=== PATIENT | female | born 1965 | race Caucasian/White ===

== ENCOUNTER → 2018-06-02 11:18 | Outpatient (CLI) | payer OTHER, MEDICAID, SELFPAY ==
[2018-06-02 11:53] LABS: Absolute Lymphocyte Count 1.97 X10^3/ul (0.83-4.51); Absolute Neutrophil Count 3.1 X10^3/uL (2.0-7.7); Basophil# 0.03 X10^3/uL; Basophil% 0.5 % (0-1); Eosinophils% 1.7 % (0-5); Hematocrit 41.3 % (37-47); Hemoglobin 13.7 g/dl (12.0-15.0); Lymphocyte # 1.97 X10^3/ul (4.0); Lymphocyte % 33.3 % (19-41); Mean Corp Hgb Conc 33.2 g/gl (32-36); Mean Corpuscular Volume 87.5 fL (81-99); Mean Platelet Vol. 10.9 fl (6.2-12.0); Monocyte# 0.68 X10^3/uL; Monocyte% 11.5 % (0-10); Neutrophil # 3.13 X10^3/uL (2.7-7.7); Neutrophil % 52.8 % (47-70); Platelet Count 264 K/mm3 (150-450); RBC Distribution Width CV 13.1 % (11.6-14.6); RBC Distribution Width SD 41.2 fl (35.1-43.9); Red Blood Count 4.72 M/mm3 (4.2-5.4); White Blood Count 5.9 K/mm3 (4.4-11.0)
[2018-06-02 11:55] LABS: POSITIVE COUNT NO; POSITIVE DIFFERENTIAL NO; POSITIVE MORPHOLOGY NO
[2018-06-02 12:03] LABS: Erythrocyte Sedimentation Rate 13 mm/hr (0-30)
== END ==
PROVIDERS: Visit Provider Specialist
DX: Z96.651 Presence of right artificial knee joint (principal)
CPT/HCPCS: 36415; 85025; 85652; 86140

== ENCOUNTER → 2018-06-28 14:12 | Outpatient (CLI) | payer OTHER, MEDICAID, SELFPAY ==
[2018-06-28 20:28] LABS: Body Fluid QC Type(s) BF3Q
[2018-06-28 21:13] LABS: AUTO B FLUID DILUENT BKGD CT WBC <0.1 RBC <0.01 (W<.1,R<.01)
[2018-06-28 21:14] LABS: Appearance /Synovial Fluid Sl Cl (CLEAR); Color / Synovial Fluid Pink (Pale Yellow); RBC /Synovial Fluid 0.013 10^6/uL (0); Viscosity / Synovial Fluid Sl. Viscous (HIGH)
[2018-06-28 21:15] LABS: Synovial Fld Polynuclear WBC % 19.5 %
[2018-06-28 21:16] LABS: Lymph 14 %; Monocyte /Synovial Fluid 53 %; Neutrophil 4 % (0-25); Other Cell /Synovial Fluid 29 %; Synovial Fld Mononuclear WBC # 1.257 10^3/ul; Synovial Fld Mononuclear WBC % 80.5 %; Synovial Fld Polynuclear WBC # 0.304 10^3/ul
[2018-06-28 21:17] LABS: Source / Synovial Fluid RIGHT KNEE
[2018-07-02 10:02] LABS: Pathologist Comment Reviewed
== END ==
PROVIDERS: Visit Provider Specialist
DX: M25.461 Effusion, right knee (principal); Z96.651 Presence of right artificial knee joint
CPT/HCPCS: 87015; 87070; 87075; 87101; 87116; 87205; 87206; 89050; 89051

== ENCOUNTER → 2018-12-21 07:02 | Outpatient (CLI) | payer OTHER, SELFPAY ==
[2018-12-07 12:59] VITALS: BMI 43.4
--- NOTE | 2018-12-21 07:04 | ECHOCS_ITS ---
Reason For Study: AFIB Procedure This was a 2D Doppler, Color Flow transthoracic echocardiogram. Contrast injection was performed. Exam performed in department. Left Ventricle Normal LV size. Left ventricular systolic function is normal. The estimated ejection fraction is 65 %. Stage 1 diastolic dysfunction. No regional wall motion abnormalities noted. Right Ventricle Normal RV size. Normal systolic function. Atria Normal left atrium. Normal right atrium. Mitral Valve Normal mitral valve. Tricuspid Valve Normal tricuspid valve. Aortic Valve Normal aortic valve. Pulmonic Valve Normal pulmonic valve. Great Vessels Normal aortic root. The pulmonary artery is normal size. Normal inferior vena cava. Pericardium/Pleural No pericardial effusion. Medication Diluted definity 3.5ml given slow IV push to enhance endocardial definition. MMode/2D Measurements & Calculations LVIDd: 4.5 cm IVSd: 0.92 cm Ao root diam: 3.2 cm LVIDs: 2.9 cm LVPWd: 1.0 cm RVDd: 3.7 cm FS: 35.2 % LAV(MOD-bp): 52.4 ml EDV(MOD-sp4): 86.0 ml SV(MOD-sp4): 61.9 ml LAV(MOD-bp) Indexed: 22.6 ml/m2 ESV(MOD-sp4): 24.1 ml LAV(MOD-sp2): 55.0 ml EF(MOD-sp4): 71.9 % LAV(MOD-sp4): 47.3 ml LA dimension(2D): 4.0 cm LA A4 area: 17.4 cm2 RA A4 area: 16.2 cm2 Time Measurements MV dec time: 0.23 sec Doppler Measurements & Calculations MV E max edwin: 125.6 cm/sec Lat Peak E' Edwin: 13.4 cm/sec Med Peak E' Edwin: 7.7 cm/sec MV A max edwin: 91.7 cm/sec E/E' lat: 9.4 E/E' med: 16.2 MV E/A: 1.4 Ao V2 max: 147.2 cm/sec LV V1 max: 120.1 cm/sec TR max edwin: 135.9 cm/sec Ao max P.7 mmHg LV V1 max P.8 mmHg TR max P.4 mmHg Interpretation Summary Normal LV size. Left ventricular systolic function is normal. The estimated ejection fraction is 65 %. Stage 1 diastolic dysfunction. Contrast injection was performed. Ordering Physician: Prem Flynn Referring Physician: Prem Flynn Performed By: Rosalie DORADO, Colleen RAMSEY and Student
--- NOTE | 2018-12-21 09:29 | STRESSREP_ITS ---
Stress Test Report Pharmacologic myocardial perfusion stress test. 53-year-old lady with a history of chest pain. Stress protocol: Resting EKG demonstrates sinus bradycardia with a rate of 53 bpm normal intervals are noted resting blood pressure 124/88 mmHg. 0.4 mg of regadenoson was infused per usual protocol followed by rapid intravenous saline flush i njection continuous EKG monitoring was performed. The maximum heart rate attained was 92 bpm which was 55% of maximum predicted heart rate the maximum workload was 1 metabolic equivalent. At rest there were no ST or T wave changes noted suggest abnormal flow reserve at peak infusion nonspecific ST-T wave changes were noted. The resting blood pressure 124/88 peak blood pressure 130/88. Myocardial perfusion protocol. 13.2 mCi of technetium 99m sestamibi was injected at rest. 0.4 mg of regadenoson was infused per usual protocol peak infusion 45.0 mCi of technetium 99m sestamibi was injected stress images were obtained stress and rest images were reconstructed and compared in the short axis vertical long horizontal long axis. Gated images were also obtained per Perfusion SPECT analysis: Review of the stress images demonstrate normal uptake of tracer noted in all areas of myocardium. The resting images similarly demonstrate normal uptake of tracer noted in all areas of the myocardium. No areas of reversibility are noted suggest ischemia. Gated SPECT analysis: The gated ejection fraction is noted to be 81%. Conclusion: Normal pharmacologic myocardial perfusion stress test. Preserved ejection fraction.
== END ==
PROVIDERS: Referring Provider Internal Medicine Cardiovascular Disease; Visit Provider Internal Medicine Cardiovascular Disease
DX: R07.9 Chest pain, unspecified (principal); I48.0 Paroxysmal atrial fibrillation
CPT/HCPCS: 78452; 93017; 93306; A9500; Q9957; A4216; C8929; J2785

== ENCOUNTER 2022-02-11 04:22 | Emergency (ER) | payer OTHER, SELFPAY ==
[2022-02-11 04:23] VITALS: BP 159/81; PULSE 60; RESP 18; TEMP 36.4; O2SAT 98; BMI 46.9
--- NOTE | 2022-02-11 04:36 | EKG12_ITS ---
Test Reason : ABD PAIN Blood Pressure : / mmHG Vent. Rate : 051 BPM Atrial Rate : 051 BPM P-R Int : 172 ms QRS Dur : 096 ms QT Int : 476 ms P-R-T Axes : 024 038 037 degrees QTc Int : 438 ms Sinus bradycardia Poor R- wave progression Confirmed by CHA DAVENPORT, JIN ([id number]), technical writer and editor HARSH GRACIA ([id number]) on 02/16/2022 11:09:45 AM Referred By: Confirmed By:JIN EUBANKS MD
--- NOTE | 2022-02-11 04:39 | EDS_ITS ---
HPI HPI - GI History of Present Illness Chief Complaint: Abd Pain Informant: patient Narrative Narrative: Patient presents with abdominal pain nausea vomiting diarrhea. She has been having some episodes of this every 1 to 2 weeks for about a month and 1/2 to 2 months. Her symptoms normally last 1 to 3 days. She has seen her private physician. Outpatient ultrasound was done that showed gallstones but no signs of acute cholecystitis. HIDA scan has not been done. Patient has not seen surgeon. This episode started about 18 to 24 hours ago. Nothing specifically initiates that such as types of food. The pain is epigastric toward the right upper quadrant. Occasionally will go through to the back. She has no urinary symptoms. No chest pain or trouble breathing. Patient does have a history of paroxysmal A. fib and takes flecainide. She takes just as needed Lasix and is not taking it now. She is taking her pantoprazole. Patient has not seen blood in the vomitus and stool. One time many weeks ago she saw a little bit of red blood after she moved her bowels but that was a single episode. No melena. [facility] Medical History Asthma Arzate esophagus Bilateral leg edema Obesity Obstructive sleep apnea Paroxysmal atrial fibrillation Home Medications aspirin 81 mg tablet,delayed release 81 mg PO QDAY 11/23/17 [History Last Taken Unknown] furosemide 40 mg tablet 40 mg PO DAILY PRN tab 09/08/21 [History Last Taken Unknown] pantoprazole 40 mg tablet,delayed release 40 mg PO DAILY 09/08/21 [History Last Taken Unknown] flecainide 100 mg tablet 100 mg PO Q12H #180 tab 12/16/21 [Rx Last Taken Unknown] metoprolol succinate 50 mg tablet,extended release 24 hr 50 mg PO DAILY #90 tab 12/16/21 [Rx Last Taken Unknown] fluticasone propion-salmeterol [Advair Diskus] 1 ea INHALATION BID 02/11/22 [History Last Taken Unknown] ondansetron 4 mg PO Q8H PRN #10 tab 02/11/22 [Rx Last Taken Unknown] oxycodone-acetaminophen [Percocet] 1 tab PO Q6H PRN 3 Days #10 tab 02/11/22 [Rx Last Taken Unknown] Allergy/AdvReac Type Severity Reaction Status Date / Time No Known Allergies Allergy Verified 02/11/22 04:26 Family History Mother Diabetes Kidney disease Father Heart disease Lung disease Surgical History achilles tendon surgery History of total right knee replacement S/P foot surgery Social History Smoking Status: Never smoker alcohol intake: never substance use type: does not use what type of physical activity do you participate in: none ROS ROS ED Constitutional Constitutional ED: Denies fever(s) or subjective ENT ENT ED: Denies rhinorrhea or sore throat Cardiovascular Cardiovascular: Denies chest pain or palpitations Respiratory/Chest Respiratory/Chest: Denies cough or dyspnea Gastrointestinal Gastrointestinal: Reports abdominal pain, diarrhea, nausea and vomiting; Denies constipation or melena Genitourinary Genitourinary ED: Denies dysuria or hematuria Musculoskeletal Musculoskeletal: Denies myalgias Integumentary Denies rash Neurologic Neurologic: Denies paresthesias or weakness Endocrine Endocrinology: Denies polydipsia or polyuria Hematologic/Lymphatic Hematologic/Lymphatic: Denies easy bleeding or easy bruising Allergic/Immunologic Allergic/Immunologic ED: Denies urticaria EXAM Physical Exam Const Vital Signs: 02/11/22 04:23 Temperature 97.6 F L Temperature Source Oral Pulse Rate 60 Respiratory Rate 18 Blood Pressure 159/81 H Blood Pressure Mean 107 Pulse Ox 98 Oxygen Delivery Method Room Air Positive well nourished, well developed and obese General Appearance ED: well developed and NAD Nutritional Appearance: obese HEENT Reports moist mucous membranes Eyes General Eye ED: Negative for pale conjunctiva or scleral icterus Neck no JVD Resp normal respiratory effort and clear to auscultation bilaterally Effort and Inspection: Negative for pain with movement Auscultation: Negative for rales, rhonchi or wheezes Cardio regular rate, regular rhythm and no murmurs GI non-distended GI Narrative: Patient's abdomen is soft. There is some epigastric and right upper quadrant tenderness. Equivocal Mason sign. No tenderness in the lower abdomen. Bowel sounds are normal. Auscultation: normoactive bowel sounds Palpation: soft Back/Spine no CVA tenderness Extremity General Extremety ED: Negative for tenderness Neuro Sensorium / Orientation: alert Skin Lesions: no lesions Rashes: no rashes MDM MDM MDM Narrative Medical decision making narrative: I was able to pull the ultrasound report off of interconnected computer system. This was done on January 27 of this year. It did show a 1.2 cm shadowing gallstone but no wall thickening or pericholecystic fluid. Negative sonographic Mason sign. Patient's blood work shows normal white count. Minimally elevated hemoglobin. Electrolytes were normal other than mild bump of her creatinine. She was given some IV fluids here. Liver function test and lipase are all normal. Urine was clear yellow with negative nitrites. She has no urinary symptoms. Patient's recheck. Her pain is almost gone. She states she has a minimal ache. But no nausea. There is no tenderness now. I will get her a dose of Toradol because I think it is longer lasting and very effective for biliary issues. I think with her age, size, known gallstone, intermittent episodes of pain this likely is biliary colic as the source of her symptoms. She is already on pantoprazole. I will refer her to surgery. She may need outpatient work-up with further testing such as HIDA scan. If she has worsening pain, fevers, vomiting or other concerns she should return. Lab Data Attestation: I reviewed the patient's lab results. Labs: Laboratory Results - last 24 hr 02/11/22 02/11/22 02/11/22 04:26 04:26 04:55 WBC 4.8 RBC 5.33 Hgb 15.5 H Hct 47.6 H MCV 89.3 MCH 29.1 MCHC 32.6 RDW Std Deviation 43.3 RDW Coeff of Jez 13.2 Plt Count 302 MPV 10.8 Immature Gran % (Auto) 0.200 Neut % (Auto) 61.8 Lymph % (Auto) 24.4 Trigg % (Auto) 12.8 H Eos % (Auto) 0.4 Baso % (Auto) 0.4 Absolute Neuts (auto) 2.9 Absolute Lymphs (auto) 1.16 Nucleated RBC % 0 Sodium 138 Potassium 3.7 Chloride 106 Carbon Dioxide 28.0 Anion Gap 4 L BUN 9 Creatinine 1.03 H Estim Creat Clear Calc 59.31 Est GFR (MDRD) Af Amer 71 Est GFR (MDRD) Non-Af 59 L BUN/Creatinine Ratio 8.7 L Glucose 104 Calcium 8.6 Total Bilirubin 0.90 AST 18 ALT 25 Alkaline Phosphatase 89 Total Protein 7.7 Albumin 3.6 Globulin 4.1 Albumin/Globulin Ratio 0.9 Lipase 160 Urine Color Yellow Urine Clarity Clear Urine pH 6.0 Ur Specific Novice 1.025 Urine Protein 30 H Urine Glucose (UA) Normal Urine Ketones 5 H Urine Occult Blood 10 H Urine Nitrite Negative Urine Bilirubin 1 H Urine Urobilinogen 4 H Ur Leukocyte Esterase 25 H EKG Initial EKG: Comments: EKG none for upper abdominal pain in a 56-year-old female. EKG read by me shows sinus rhythm with slightly bradycardic rate at 51. No ventricular ectopy. No acute ST elevation or depression. ME interval, QRS duration and QTc are normal. Discharge Plan Triage Chief Complaint: Abd Pain ED Provider: Anthony Miramontes Dx/Rx/DC Orders Clinical Impression: Biliary colic, Abdominal pain, Nausea & vomiting Instructions: ED Gallstones with Biliary Colic Prescriptions: New oxycodone-acetaminophen [Percocet] 5-325 mg tablet 1 tab PO Q6H PRN (Reason: pain) 3 Days Qty: 10 RF: 0 ondansetron 4 mg tablet,disintegrating 4 mg PO Q8H PRN (Reason: nausea and vomiting) Qty: 10 RF: 0 No Action aspirin 81 mg tablet,delayed release (DR/EC) 81 mg PO QDAY RF: 0 pantoprazole 40 mg tablet,delayed release (DR/EC) 40 mg PO DAILY RF: 0 furosemide 40 mg tablet 40 mg PO DAILY PRN (Reason: Indigestion) RF: 0 fluticasone propion-salmeterol [Advair Diskus] 100-50 mcg/dose blister with device 1 ea INHALATION BID RF: 0 flecainide 100 mg tablet 100 mg PO Q12H Qty: 180 RF: 4 metoprolol succinate [Toprol XL] 50 mg tablet extended release 24 hr 50 mg PO DAILY Qty: 90 RF: 3 Primary Care Provider: Prema Hanna Referrals: Mattie Linton MD [STAFF PHYSICIAN] - As soon as possible [facility],Out of [NON-STAFF] - Disposition Disposition: Home, Self Care
[2022-02-11] MEDS: Ondansetron 4 MG/2 ML Vial IV (04:47)
[2022-02-11] MEDS: Morphine 4 MG/ML Syringe IV (04:48)
[2022-02-11 04:51] LABS: Absolute Lymphocyte Count 1.16 X10^3/uL (0.83-4.51); Absolute Neutrophil Count 2.9 X10^3/uL (2.0-7.7); Basophil# 0.02 X10^3/uL; Basophil% 0.4 % (0-1); Eosinophil# 0.02 X10^3/uL; Eosinophils% 0.4 % (0-5); Hematocrit 47.6 % (37-47); Hemoglobin 15.5 g/dL (12.0-15.0); Lymphocyte # 1.16 X10^3/ul (0.83-4.51); Lymphocyte % 24.4 % (19-41); Mean Corp Hgb Conc 32.6 g/dL (32-36); Mean Corpuscular Hgb 29.1 pg (27.0-32.0); Mean Corpuscular Volume 89.3 fL (81-99); Mean Platelet Vol. 10.8 fl (6.2-12.0); Monocyte# 0.61 X10^3/uL; Monocyte% 12.8 % (0-10); NRBC Flagged by Analyzer 0 % (0-5); Neutrophil # 2.93 X10^3/uL (2.7-7.7); Neutrophil % 61.8 % (47-70); Platelet Count 302 K/mm3 (150-450); RBC Distribution Width CV 13.2 % (11.6-14.6); RBC Distribution Width SD 43.3 fl (35.1-43.9); Red Blood Count 5.33 M/mm3 (4.2-5.4); White Blood Count 4.8 K/mm3 (4.4-11.0)
[2022-02-11 05:15] LABS: ALB/GLOB Ratio 0.9 RATIO (0.9-2.4); AST(SGOT) 18 U/L (15-37); Alanine Aminotransfer ALT/SGPT 25 U/L (13-56); Albumin, Serum 3.6 g/dL (3.2-5.0); Alkaline Phosphatase 89 U/L (45-117); Anion Gap 4 (5-15); BUN 9 mg/dL (7-18); BUN/Creat Ratio 8.7 RATIO (10-20); Calcium,Total 8.6 mg/dL (8.5-10.1); Chloride 106 mmol/L (98-107); Creatinine, Serum 1.03 mg/dL (0.55-1.02); EST Glomerular Filtration Rate 59 mL/min (>60); Est Glom Filt Rate - Afr Amer 71 mL/min (>60); Estimated Creatinine Clearance 59.31 ml/min; Globulin 4.1 g/dL (2.2-4.2); Glucose 104 mg/dL (74-106); Lipase 160 U/L (73-393); Potassium 3.7 mmol/L (3.5-5.1); Protein, Total 7.7 g/dL (6.4-8.2); Sodium Level 138 mmol/L (136-145)
[2022-02-11 05:23] LABS: Color, Urine Yellow (Yellow); Glucose, Dipstick Normal (Normal); Ketone-Dipstick 5 mg/dl (Negative); Leukocyte Esterase-Dipstick 25 /ul (Negative); Nitrite-Dipstick Negative (Negative); Occult Blood-Urine 10 /ul (Negative); Protein-Dipstick 30 mg/dl (Negative); Specific Gravity, Urine 1.025 (1.002-1.030); Urine Clarity Clear (Clear); Urine Urobilinogen 4 mg/dl (Normal)
[2022-02-11 05:34] LABS: Urine Bilirubin Dipstick 1 mg/dL (Negative)
[2022-02-11 05:45] LABS: Red Blood Cells-Urine 0-5 SEEN /hpf (0-5); White Blood Cells 0-5 SEEN /hpf (0-5)
[2022-02-11 05:46] LABS: Bacteria 1+ /hpf (None Seen); Mucous, Urine 2+ /hpf (<or=2+); Squamous Epithelial Cells - UA 0-5 SEEN /hpf (5-10)
[2022-02-11 05:57] VITALS: RESP 16
== END 2022-02-11 05:58 | disposition home or self-care (01) ==
PROVIDERS: Emergency Provider Emergency Medicine; PCP Internal Medicine; Visit Provider Emergency Medicine
DX: K80.50 Calculus of bile duct without cholangitis or cholecystitis without obstruction (principal); I48.0 Paroxysmal atrial fibrillation; R10.9 Unspecified abdominal pain; R11.2 Nausea with vomiting, unspecified; E66.9 Obesity, unspecified; G47.33 Obstructive sleep apnea (adult) (pediatric); Z79.82 Long term (current) use of aspirin; Z79.899 Other long term (current) drug therapy
CPT/HCPCS: 80053; 81001; 83605; 83690; 85025; 93005; 96361; 96374; 96375; 99283; J7030; A4216; J2405

== ENCOUNTER → 2022-09-28 | Outpatient (CLI) | payer OTHER, SELFPAY ==
--- NOTE | 2022-09-28 15:53 | STRESSREP ---
Stress Test Report Pharmacal myocardial perfusion stress test. 56-year-old lady with a history of atrial fibrillation on flecainide therapy. Resting EKG. Resting EKG demonstrates sinus rhythm with a rate of 58 bpm normal intervals are noted. Resting blood pressure is 118/74 mmHg. 0.4 mg of regadenoson was infused per usual protocol followed by rapid intravenous saline flush injection continuous EKG monitoring was performed. The maximum heart rate attained was 78 bpm which was 47% of max impacted heart rate the maximum workload was 1 metabolic equivalent. At rest there were no ST or T wave changes noted suggest ischemia and at peak infusion nonspecific ST changes were noted we did not meet the criteria for ischemia. No clinical angina was noted the test was terminated due to completion of the protocol Myocardial perfusion protocol. 14.1 mCi of technetium 99m sestamibi was injected at rest. 0.4 mg of regadenoson was infused per usual protocol. At peak infusion 37.0 mCi of technetium 99m sestamibi was injected stress images were obtained stress and rest images were reconstructed and compared in the short axis vertical long and horizontal long axis. Gated images were also obtained. Perfusion SPECT analysis: Review of the stress images demonstrate normal uptake of tracer noted in all areas of the myocardium. The resting images similar demonstrate normal uptake of tracer noted in all areas of the myocardium. No areas of reversibility are noted to suggest ischemia and no previous infarct is noted. Gated SPECT analysis: The gated ejection fraction is 78%. Conclusion: Normal pharmacologic myocardial perfusion stress test. Preserved ejection fraction.
== END | disposition home or self-care (01) ==
LOC: CVS 06:43
PROVIDERS: PCP Internal Medicine; Visit Provider Internal Medicine Cardiovascular Disease
DX: I48.0 Paroxysmal atrial fibrillation (principal)
CPT/HCPCS: 78452; 93017; A9500; A4216; J2785

== ENCOUNTER 2023-02-22 22:58 | Emergency (ER) | payer OTHER, SELFPAY ==
[2023-02-22 22:59] VITALS: BP 162/109; PULSE 102; RESP 18; TEMP 36.1; O2SAT 99; BMI 47.0
--- NOTE | 2023-02-22 23:09 | ED.VIS.CHEST ---
HPI History of Present Illness Chief Complaint: Palpitations Narrative Narrative: 57-year-old female here for palpitations. States inguinal for 1 hour. States notes shortness of breath but no chest pain. No recent bleeding diathesis. No recent volume loss such as diarrhea or vomiting. No recent infectious symptoms. The patient denies recent surgery in the last 4 weeks or immobilization in the last 3 days, denies previous diagnosis of DVT or PE, hemoptysis, unilateral leg swelling or malignancy with treatment the last 6 months. No estrogen use noted. PFSH PFS Medical History Asthma Arzate esophagus Obesity Obesity, morbid, BMI 40.0-49.9 Obstructive sleep apnea Paroxysmal atrial fibrillation Home Medications aspirin 81 mg tablet,delayed release 81 mg PO QDAY 11/23/17 [History Last Taken Unknown] pantoprazole 40 mg tablet,delayed release 40 mg PO DAILY 09/08/21 [History Last Taken Unknown] metoprolol succinate 50 mg tablet,extended release 24 hr (Toprol XL) 50 mg PO DAILY #90 tabs 12/09/22 [Rx Last Taken Unknown] flecainide 100 mg tablet 100 mg PO Q12H #180 tabs 02/06/23 [Rx Last Taken Unknown] prednisone 20 mg tablet See Rx Instructions .Route .COMPLEX 02/22/23 [History Last Taken Unknown] Allergy/AdvReac Type Severity Reaction Status Date / Time No Known Allergies Allergy Verified 02/22/23 22:59 Family History Mother Diabetes Kidney disease Father Heart disease Lung disease Surgical History achilles tendon surgery History of total right knee replacement S/P foot surgery Social History Smoking Status: Never smoker alcohol intake: never substance use type: does not use what type of physical activity do you participate in: none ROS ROS ED ROS Narrative Constitutional: Denies fever HEENT: Denies sore throat Neck: Denies neck pain Cardiovascular: Endorses palpitations Respiratory: Endorses shortness of breath GI: Denies nausea vomiting or abdominal pain : Denies changes in urinary habits Musculoskeletal: Denies muscle or joint pain Neurologic: Denies numbness weakness or loss of sensation Skin denies rash EXAM Physical Exam Narrative Exam Narrative: Nursing triage notes reviewed, Vital signs reviewed Constitutional: please see [facility] HENT: MMM Eyes: Pupils equal round and reactive to light, Extraocular muscles intact Neck: No stridor, no JVD, full neck ROM Lungs: Clear to auscultation, No wheezing or rales. No increased work of breathing, no conversational dyspnea, no accessory muscle use, no nasal flaring. No respiratory distress noted Heart: Regular rate and rhythm, no murmurs, No rubs and No gallops, 2+ distal pulses (radial, femoral, posterior tibial) in all extremities Abdomen: Soft, there is no tenderness, rigidity, rebound or guarding, no obvious peritoneal signs, no palpable pulsatile abdominal masses, no auscultated abdominal bruit : No CVAT Extremities: No edema Neuro: No focal neurological deficits, cranial nerves II through XII intact, 5/5 strength in all extremities. Intact sensation to light touch in all extremities, 2+ reflexes bilateral patella dens. Normal gait. No ataxia. Skin: No rash or lesions noted Const Vital Signs: 02/22/23 22:59 02/22/23 23:23 02/22/23 23:27 Temperature 97.0 F L Temperature Source Temporal Pulse Rate 102 H Respiratory Rate 18 Respiratory Effort Normal Respiratory Pattern Normal Blood Pressure 162/109 H Blood Pressure Mean 126 Pulse Ox 99 Oxygen Delivery Method Room Air Room Air 02/23/23 00:19 02/23/23 01:22 Temperature Temperature Source Pulse Rate 102 H 97 Respiratory Rate 15 14 Respiratory Effort Respiratory Pattern Blood Pressure 138/100 H 129/86 H Blood Pressure Mean 112 100 Pulse Ox 97 97 Oxygen Delivery Method Room Air Room Air [facility] [place] Narrative Medical decision making narrative: Chief Complaint: Palpitations External records reviewed: Seen for A-fib in 2015, patient was worked up at that time. Negative stress test in September 2022 I considered the following differential diagnosis: Arrhythmia, ACS, anemia, electrode normalities, PE, pneumonia Patient was initially hypertensive, afebrile and nontoxic-appearing. Initial exam unremarkable. I obtained a broad lab and imaging work-up to further elucidate etiology of patient's complaints. Labs without evidence of myocardial ischemia, significant anemia. There was mild hypokalemia but this was replaced. Patient was kept on monitor technician. She is given 2 doses of IV metoprolol. This converted her rhythm to normal sinus rhythm. Given lack of ischemic pathology, resolved arrhythmia, no significant electrolyte abnormalities, there is no significant dehydration. The patient does not require inpatient hospitalization or change in management this time. She is appropriate discharge home. Encouraged patient to follow with her primary care physician for further outpatient evaluation treatment and medication titration. Did notice her blood pressure was elevated initially. Discussed her taking her home lisinopril was already prescribed. She states she is not on lisinopril at this time because she did not feel like she had high blood pressure. Encourage patient to get repeat blood pressure evaluation as an outpatient. Factors affecting care: History of DVT, obesity, asthma, A-fib on Pradaxa Social determinants of health: Poor health literacy History obtained from others: The patient's Shared decision making: I will have a discussion with the patient and or visitors regarding risk/benefits of further testing or admission. They will be made aware of of the risk/benefits inherent in this decision they will be given the opportunity to voice understanding. Consults: none Lab Data Attestation: I reviewed the patient's lab results. Lab results narrative: EKG with A-fib, normal axis, normal intervals, no obvious ischemic changes CBC with leukocytosis suggestive of systemic inflammation, no sniffing anemia or thrombocytopenia BMP with mild hypokalemia, no other significant [place] abnormalities, no anion gap to suggest endorgan hypoperfusion, no severe SUMA or signs of dehydration Troponin is negative, no evidence of myocardial ischemia BNP elevated only barely. This is not consistent with CHF exacerbation Labs: Laboratory Results - last 24 hr 02/22/23 02/22/23 02/22/23 23:10 23:10 23:10 WBC 14.8 H RBC 5.17 Hgb 15.0 Hct 46.3 MCV 89.6 MCH 29.0 MCHC 32.4 RDW Std Deviation 42.6 RDW Coeff of Jez 12.9 Plt Count 303 MPV 10.8 Immature Gran % (Auto) 2.200 H Neut % (Auto) 59.3 Lymph % (Auto) 27.4 Bell % (Auto) 10.5 H Eos % (Auto) 0.1 Baso % (Auto) 0.5 Absolute Neuts (auto) 8.8 H Absolute Lymphs (auto) 4.05 Nucleated RBC % [address] Review May foll Sodium 139 Potassium 3.2 L Chloride 108 H Carbon Dioxide 29.0 Anion Gap 2 L BUN 18 Creatinine 0.96 Estim Creat Clear Calc 62.87 Est GFR (MDRD) Af Amer 77 Est GFR (MDRD) Non-Af 64 BUN/Creatinine Ratio 18.8 Glucose 124 H Calcium 9.2 Troponin I High Sens 6 B-Natriuretic Peptide 103.2 H 02/23/23 01:25 WBC RBC Hgb Hct MCV MCH MCHC RDW Std Deviation RDW Coeff of Jez Plt Count MPV Immature Gran % (Auto) Neut % (Auto) Lymph % (Auto) Bell % (Auto) Eos % (Auto) Baso % (Auto) Absolute Neuts (auto) Absolute Lymphs (auto) Nucleated RBC % Diff Path Review Sodium Potassium Chloride Carbon Dioxide Anion Gap BUN Creatinine Estim Creat Clear Calc Est GFR (MDRD) Af Amer Est GFR (MDRD) Non-Af BUN/Creatinine Ratio Glucose Calcium Troponin I High Sens 15 B-Natriuretic Peptide Radiography Chest X-Ray - ED: Read by ED Physician Diagnostic Testing: Clinical Impression(s) from Imaging Studies Chest X-Ray 02/22/23 23:30 IMPRESSION: No radiographic evidence of acute cardiopulmonary disease. Electronically Signed: Ryan Garcia MD at 23:51 EDT , I have personally reviewed the patient's chest x-ray. Chest x-ray is unremarkable for pulmonary edema, pneumothorax, pneumonia or focal cardiopulmonary abnormality. Discharge Plan Triage Chief Complaint: Palpitations ED Provider: Crow Mcallister Dx/Rx/DC Orders Clinical Impression: Paroxysmal atrial fibrillation Instructions: AFib Dc Prescriptions: No Action aspirin 81 mg tablet,delayed release (DR/EC) 81 mg PO QDAY pantoprazole 40 mg tablet,delayed release (DR/EC) 40 mg PO DAILY prednisone 20 mg tablet See Rx Instructions .ROUTE .COMPLEX Label Comments: TAKE 1 TAB TWICE DAILY FOR 3 DAYS THEN 1 TABLET DAILY FOR 4 DAYS Rx Instructions: taper metoprolol succinate [Toprol XL] 50 mg tablet extended release 24 hr 50 mg PO DAILY Qty: 90 3RF flecainide 100 mg tablet 100 mg PO Q12H Qty: 180 4RF Primary Care Provider: Prema Hanna Referrals: Prema Hnana MD [Primary Care Provider] - Activity Restrictions/Additional Instructions: Please return if you develop chest pain, worsening palpitations, shortness of breath, if you lose consciousness. Please follow with your primary care physician for outpatient blood pressure recheck. Please follow with your primary care physician for further management and evaluation. Disposition Disposition: Home, Self Care
--- NOTE | 2023-02-22 23:12 | EKG12_ITS ---
Test Reason : DYSRHYTHMIA Blood Pressure : / mmHG Vent. Rate : 105 BPM Atrial Rate : 092 BPM P-R Int : 000 ms QRS Dur : 112 ms QT Int : 316 ms P-R-T Axes : 000 049 -04 degrees QTc Int : [address] & T wave abnormality, consider inferior ischemia Abnormal ECG Confirmed by CHRIST DAVENPORT, JESUSITA ([id number]), sound editor LAMONTE RIDDLE ([id number]) on 02/24/2023 2:24:09 PM Referred By: MARIANO Confirmed By:JESUSITA POLO MD
[2023-02-22 23:20] LABS: Absolute Lymphocyte Count 4.05 X10^3/uL (0.83-4.51); Absolute Neutrophil Count 8.8 X10^3/uL (2.0-7.7); Basophil# 0.07 X10^3/uL; Basophil% 0.5 % (0-1); Eosinophil# 0.02 X10^3/uL; Eosinophils% 0.1 % (0-5); Hematocrit 46.3 % (37-47); Lymphocyte # 4.05 X10^3/ul (0.83-4.51); Lymphocyte % 27.4 % (19-41); Mean Corp Hgb Conc 32.4 g/dL (32-36); Mean Corpuscular Volume 89.6 fL (81-99); Mean Platelet Vol. 10.8 fl (6.2-12.0); Monocyte# 1.56 X10^3/uL; Monocyte% 10.5 % (0-10); NRBC Flagged by Analyzer 0 % (0-5); Neutrophil # 8.76 X10^3/uL (2.7-7.7); Neutrophil % 59.3 % (47-70); POSITIVE DIFFERENTIAL YES; Platelet Count 303 K/mm3 (150-450); RBC Distribution Width CV 12.9 % (11.6-14.6); RBC Distribution Width SD 42.6 fl (35.1-43.9); Red Blood Count 5.17 M/mm3 (4.2-5.4); White Blood Count 14.8 K/mm3 (4.4-11.0)
[2023-02-22] MEDS: Aspirin 81 MG TAB.CHEW 324 MG PO (23:21)
[2023-02-22] MEDS: 0.9% Normal Saline 1,000 ML 1000 ML IV (23:21)
[2023-02-22] MEDS: Metoprolol Tartrate 5 MG/5 ML Vial IV (23:22)
[2023-02-22 23:26] LABS: Differential Indicated SCAN CRITERIA MET
--- NOTE | 2023-02-22 23:30 | RAD_ITS ---
EXAM: XR CHEST, 1 VIEW CLINICAL INDICATION: chest pain TECHNIQUE: Frontal view of the chest. This report was created using [employer] report generation technology. COMPARISON: 07/28/2016 FINDINGS: LUNGS AND PLEURAL SPACES: Unremarkable. No consolidation or edema. No pneumothorax. No effusion. HEART: Unremarkable. Cardiac silhouette not enlarged. MEDIASTINUM: Central airways and mediastinal contour are unremarkable. BONES/JOINTS: Unremarkable. SOFT TISSUES: Unremarkable. RAD/Chest 1 View (Portable) IMPRESSION: No radiographic evidence of acute cardiopulmonary disease. Electronically Signed: Ryan Garcia MD at 23:51 EDT ,
[2023-02-22 23:41] LABS: Anion Gap 2 (5-15); BUN 18 mg/dL (7-18); BUN/Creat Ratio 18.8 RATIO (10-20); Calcium,Total 9.2 mg/dL (8.5-10.1); Chloride 108 mmol/L (98-107); Creatinine, Serum 0.96 mg/dL (0.55-1.02); EST Glomerular Filtration Rate 64 mL/min (>60); Est Glom Filt Rate - Afr Amer 77 mL/min (>60); Estimated Creatinine Clearance 62.87 ml/min; Glucose 124 mg/dL (74-106); Potassium 3.2 mmol/L (3.5-5.1); Sodium Level 139 mmol/L (136-145); Troponin-I HS (w/2H Reflex) 6 pg/mL (3.0-54.0)
[2023-02-23 00:19] VITALS: BP 138/100; PULSE 102; RESP 15; O2SAT 97
[2023-02-23 01:17] LABS: BNP,B-Type NATRIURETIC PEPTIDE 103.2 pg/mL (0-100)
[2023-02-23 01:18] LABS: Reflex Troponin-HS? (from REC) Y
[2023-02-23] MEDS: Metoprolol Tartrate 5 MG/5 ML Vial IV (01:19)
[2023-02-23 01:22] VITALS: BP 129/86; PULSE 97; RESP 14; O2SAT 97
[2023-02-23 01:57] LABS: Troponin-I HS 15 pg/mL (3.0-54.0)
--- NOTE | 2023-02-23 02:09 | EKG12_ITS ---
Test Reason : REPEAT EKG Blood Pressure : / mmHG Vent. Rate : 056 BPM Atrial Rate : 056 BPM P-R Int : 170 ms QRS Dur : 100 ms QT Int : 444 ms P-R-T Axes : 040 014 034 degrees QTc Int : 428 ms Sinus bradycardia Otherwise normal ECG Confirmed by JESUSITA POLO MD ([id number]), senior technical editor LAMONTE RIDDLE ([id number]) on 02/24/2023 2:23:48 PM Referred By: MARIANO Confirmed By:JESUSITA POLO MD
[2023-02-23 02:42] VITALS: BP 127/78; PULSE 59; RESP 16; O2SAT 98
[2023-02-23 10:41] LABS: Pathologist Review Reviewed
== END 2023-02-23 02:42 | disposition home or self-care (01) ==
PROVIDERS: Emergency Provider Emergency Medicine; PCP Internal Medicine; Visit Provider Emergency Medicine
DX: I48.0 Paroxysmal atrial fibrillation (principal); E66.01 Morbid (severe) obesity due to excess calories; G47.33 Obstructive sleep apnea (adult) (pediatric); Z79.82 Long term (current) use of aspirin; Z79.899 Other long term (current) drug therapy
CPT/HCPCS: 71045; 80048; 83880; 84484; 85025; 93005; 96361; 96374; 96376; 99284; J7030; A4216

== ENCOUNTER 2023-08-16 06:22 | Emergency (ER) | payer OTHER, SELFPAY ==
[2023-08-16 06:23] VITALS: BP 191/87; RESP 26; TEMP 35.9; O2SAT 97; BMI 47.0
--- NOTE | 2023-08-16 06:28 | EKG12_ITS ---
Test Reason : SOB Blood Pressure : / mmHG Vent. Rate : 056 BPM Atrial Rate : 056 BPM P-R Int : 126 ms QRS Dur : 100 ms QT Int : 464 ms P-R-T Axes : 049 -01 029 degrees QTc Int : 447 ms Sinus bradycardia Otherwise normal ECG Confirmed by CHRIST DAVENPORT, JESUSITA ([id number]), assistant editor HARSH GRACIA ([id number]) on 08/21/2023 2:08:14 PM Referred By: Confirmed By:JESUSITA POLO MD
--- NOTE | 2023-08-16 06:28 | RAD_ITS ---
EXAM: XR CHEST, 1 VIEW CLINICAL INDICATION: shortness of breath TECHNIQUE: Frontal view of the chest. COMPARISON: February 22, 2023. FINDINGS: LUNGS AND PLEURAL SPACES: Unremarkable. No consolidation or edema. No pneumothorax. No effusion. HEART: Unremarkable. Cardiac silhouette not enlarged. MEDIASTINUM: Central airways and mediastinal contour are unremarkable. BONES/JOINTS: Unremarkable. SOFT TISSUES: Unremarkable. RAD/Chest 1 View (Portable) IMPRESSION: No radiographic evidence of acute cardiopulmonary disease. Electronically Signed: Radha Valladares MD at 7:07 EDT ,
[2023-08-16 06:29] VITALS: BP 191/87; PULSE 60; RESP 26; TEMP 35.8; O2SAT 97
--- NOTE | 2023-08-16 06:30 | EDS_ITS ---
HPI History of Present Illness Chief Complaint: Shortness of Breath Narrative Narrative: 57-year-old female past medical history of hypertension, paroxysmal atrial fibrillation on metoprolol and flecainide, presents with cough and shortness of breath that she has had since 130 this morning. She states that she had upper respiratory infection about 2 weeks ago and improved. Last night, before she went to bed she used her albuterol inhaler. She woke about 5 hours ago with coughing jag and shortness of breath, with difficulty breathing. She states she is not a smoker but is around secondhand smoke. She had a cough since this morning with thick, yellow sputum production. She denies any fevers or chills. She states she took 40 mg of prednisone, and Tessalon Perles without relief of her symptoms. She still short of breath and having coughing fits. No other exacerbating or alleviating factors. [facility] Medical History Asthma Arzate esophagus Obesity Obesity, morbid, BMI 40.0-49.9 Obstructive sleep apnea Paroxysmal atrial fibrillation Home Medications aspirin 81 mg tablet,delayed release 81 mg PO QDAY 11/23/17 [History Last Taken Unknown] pantoprazole 40 mg tablet,delayed release 40 mg PO DAILY 09/08/21 [History Last Taken Unknown] metoprolol succinate 50 mg tablet,extended release 24 hr (Toprol XL) 50 mg PO DAILY #90 tabs 12/09/22 [Rx Last Taken Unknown] flecainide 100 mg tablet 100 mg PO Q12H #180 tabs 02/06/23 [Rx Last Taken Unknown] prednisone 20 mg tablet See Rx Instructions .Route .COMPLEX 02/22/23 [History Last Taken Unknown] albuterol sulfate 90 mcg/actuation aerosol inhaler (Ventolin HFA) 1 - 2 puff inhalation Q4H PRN PRN Wheezing #1 ea 08/16/23 [Rx Last Taken Unknown] prednisone 20 mg tablet 40 mg (2 x 20 mg) PO DAILY 7 days #14 tabs 08/16/23 [Rx Last Taken Unknown] Allergy/AdvReac Type Severity Reaction Status Date / Time No Known Allergies Allergy Verified 02/22/23 22:59 Family History Mother Diabetes Kidney disease Father Heart disease Lung disease Surgical History achilles tendon surgery History of total right knee replacement S/P foot surgery Social History Smoking Status: Never smoker alcohol intake: never substance use type: does not use what type of physical activity do you participate in: none ROS ROS ED ROS Narrative Constitutional: No fever, no chills. HEENT: No sore throat. No neck pain. No loss of vision. No rhinorrhea. Cardiovascular: No chest pain. No palpitations. No pedal edema. Respiratory: Positive cough, positive shortness of breath. Abdominal: No abdominal pain. No nausea. No vomiting. Genitourinary: No dysuria. No hematuria. Musculoskeletal: No myalgias. No arthralgias. Neurologic: No headaches. No dizziness. No lightheadedness. Skin: No rash. No change in color. Psychiatric: No depression. No anxiety. EXAM Physical Exam Narrative Exam Narrative: Afebrile. Vital signs noted. HEENT: Normocephalic. Atraumatic. PERRL, EOMI. Neck soft and supple. No point tenderness or step off. Cardiovascular: Regular rate and rhythm. No murmurs, rubs, or gallops appreciated. Respiratory: No tachypnea. Positive dry cough on examination. Occasional expiratory wheeze bilateral bases. Gastrointestinal: Abdomen soft, nontender, with normoactive bowel sounds. No rebound or guarding. Neurological: Awake. Alert. Nonfocal, nonlateralizing. Skin: No rash. Normal color. No pallor. Musculoskeletal: No pedal edema. Full range of motion extremities. Const Vital Signs: 08/16/23 06:23 08/16/23 06:29 08/16/23 06:43 Temperature 96.7 F L 96.5 F L Temperature Source Temporal Temporal Pulse Rate 60 62 Respiratory Rate 26 H 26 H 20 H Respiratory Pattern Tachypnea Blood Pressure 191/87 H 191/87 H Blood Pressure Mean 121 121 Pulse Ox 97 97 Oxygen Delivery Method Room Air Room Air MDM MDM MDM Narrative Medical decision making narrative: In the differential diagnosis is pneumonia versus bronchitis. I have low suspicion for pneumothorax because the history and physical does not support this. She will be given an albuterol aerosolized treatment. She has already taken the loading dose of steroid. I will obtain a chest x-ray in 1 view and EKG, along with respiratory swabs. I do not feel that laboratory work is currently indicated. I did review her respiratory swabs and they are negative for COVID and influenza. Chest x-ray in 1 view interpreted by myself independently shows no evidence of a pneumonia or pneumothorax. I do not feel antibiotics are indicated. I reviewed the radiology report which confirms my independent interpretation. EKG interpreted by myself independently demonstrates sinus bradycardia at 56 bpm without ectopy or acute ST changes. No STEMI. Upon repeat examination after albuterol, she is no longer wheezing and she is moving a good amount of air. Her pulse ox is 98% on room air on the monitor without evidence of hypoxia. At this point in time, as she is already given herself a loading dose of 40 mg I wrote her a prescription for an albuterol inhaler and for prednisone burst of 40 mg for the next 7 days. She feels she has a spacer at home, and I advised her to use this. She is to avoid secondhand smoke. I do not feel she requires hospitalization at this time. Return instructions to the emergency department were reviewed. Disposition is discharged home in stable condition. History & Record Review Discussion w/independent historian: Patient Additional record(s) reviewed:: Prior ED visit Lab Data Lab results narrative: Respiratory swabs negative for COVID and influenza a and B. Radiography Diagnostic Testing: Clinical Impression(s) from Imaging Studies Chest X-Ray 08/16/23 06:28 IMPRESSION: No radiographic evidence of acute cardiopulmonary disease. Electronically Signed: Radha Valladares MD at 7:07 EDT , Discharge Plan Triage Chief Complaint: Shortness of Breath ED Provider: Ruy Easley Dx/Rx/DC Orders Clinical Impression: Shortness of breath, Bronchitis Instructions: ED Bronchitis with Wheezing (Adult), ED Dyspnea Prescriptions: New albuterol sulfate [Ventolin HFA] 90 mcg/actuation HFA aerosol inhaler 1 - 2 puff inhalation Q4H PRN PRN (Reason: Wheezing) Qty: 1 0RF prednisone 20 mg tablet 40 mg PO DAILY 7 Days Qty: 14 0RF No Action aspirin 81 mg tablet,delayed release (DR/EC) 81 mg PO QDAY pantoprazole 40 mg tablet,delayed release (DR/EC) 40 mg PO DAILY prednisone 20 mg tablet See Rx Instructions .ROUTE .COMPLEX Patient Comments: TAKE 1 TAB TWICE DAILY FOR 3 DAYS THEN 1 TABLET DAILY FOR 4 DAYS Rx Instructions: taper metoprolol succinate [Toprol XL] 50 mg tablet extended release 24 hr 50 mg PO DAILY Qty: 90 3RF flecainide 100 mg tablet 100 mg PO Q12H Qty: 180 4RF Primary Care Provider: Prema Hanna Referrals: Prema Hanna MD [Primary Care Provider] - 3-5 Days if not improving Disposition Disposition: Home, Self Care
[2023-08-16] MEDS: Albuterol 2.5 MG/3 ML VIAL.NEB. INHALATION (06:35)
[2023-08-16 06:43] VITALS: PULSE 62; RESP 20
[2023-08-16 07:28] VITALS: BP 162/88; O2SAT 93
== END 2023-08-16 07:31 | disposition home or self-care (01) ==
PROVIDERS: Emergency Provider Emergency Medicine; PCP Internal Medicine; Visit Provider Emergency Medicine
DX: R06.02 Shortness of breath (principal); J40 Bronchitis, not specified as acute or chronic
CPT/HCPCS: 71045; 87428; 93005; 94640; 99282

== ENCOUNTER 2023-08-18 09:17 | Emergency (ER) | payer OTHER, SELFPAY ==
[2023-08-18] VITALS (9 sets, daily range): BP systolic 149–181; BP diastolic 59–98; PULSE 60–110; RESP 16–22; TEMP 36.6; O2SAT 94–98; BMI 46.0
--- NOTE | 2023-08-18 10:22 | CT_ITS ---
HISTORY: rule out PE. TECHNIQUE: CT angiogram of the chest was performed after the intravenous administration of 100 mL Isovue-370. Post-processing of the angiographic images was performed with multiplanar reformation and 3D reconstruction. Individualized dose optimization techniques were used for this CT. 1215 images. COMPARISON: XR 08/16/2023. FINDINGS: CENTRAL AIRWAYS: Patent. LUNGS: Very mild right lower lobe scarring adjacent to an osteophyte. PLEURA: No pneumothorax or significant pleural effusion. HEART/PERICARDIUM: Heart within normal limits in size. No pericardial effusion. PULMONARY ARTERIES: No filling defect. AORTA/VESSELS: No thoracic aortic aneurysm or dissection flap. Mild atherosclerosis. MEDIASTINUM/KATIUSKA: No pathologically enlarged lymph nodes. OSSEOUS STRUCTURES: Diffuse idiopathic skeletal hyperostosis present. UPPER ABDOMEN: Cholecystectomy. CT/CTA Chest W/WO Contrast IMPRESSION: No evidence of pulmonary embolism. Electronically Signed: Caroline Real MD at 11:57 EDT ,
--- NOTE | 2023-08-18 10:23 | EKG12_ITS ---
Test Reason : sob Blood Pressure : / mmHG Vent. Rate : 061 BPM Atrial Rate : 061 BPM P-R Int : 156 ms QRS Dur : 092 ms QT Int : 436 ms P-R-T Axes : 060 009 045 degrees QTc Int : 438 ms Normal sinus rhythm Normal ECG Confirmed by CHRIST DAVENPORT, JESUSITA ([id number]), society editor HARSH GRACIA ([id number]) on 08/22/2023 8:01:02 AM Referred By: Confirmed By:JESUSITA POLO MD
--- NOTE | 2023-08-18 10:26 | EX.ED.DYSGE1 ---
HPI History of Present Illness Chief Complaint: Shortness of Breath Narrative Narrative: Patient is a 57-year-old female who is presenting for shortness of breath. Patient was just in the ER 2 days ago, patient had EKG, COVID, flu testing and x-ray that showed no acute abnormalities. Patient was started on a 40 mg prednisone burst for 1 week. 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 Patient's been having 3 days of shortness of breath. This started at 140 in the morning, early Monday morning. Patient has no recent traveling. Patient is on no blood thinners. Patient was diagnosed with A-fib several months ago, she is not currently in A-fib. Patient has no history of asthma, no history of emphysema or COPD. Patient has mild headache secondary to coughing. Patient has no chest pain or tightness. Patient has audible wheezing. Patient feels shortness of breath and not improving with steroids for 3 days. Patient is using albuterol inhaler for the past couple days. Patient has no abdominal pain, nausea or vomiting. Patient does have chronic edema to her lower extremities, it is much improved today than what it normally is. Patient has never been a smoker. 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 Patient has no other acute complaints. Patient has not felt like this before. [facility] Medical History Asthma Arzate esophagus Obesity Obesity, morbid, BMI 40.0-49.9 Obstructive sleep apnea Paroxysmal atrial fibrillation Home Medications aspirin 81 mg tablet,delayed release 81 mg PO QDAY 11/23/17 [History Last Taken Unknown] pantoprazole 40 mg tablet,delayed release 40 mg PO DAILY 09/08/21 [History Last Taken Unknown] metoprolol succinate 50 mg tablet,extended release 24 hr (Toprol XL) 50 mg PO DAILY #90 tabs 12/09/22 [Rx Last Taken Unknown] flecainide 100 mg tablet 100 mg PO Q12H #180 tabs 02/06/23 [Rx Last Taken Unknown] prednisone 20 mg tablet See Rx Instructions .Route .COMPLEX 02/22/23 [History Last Taken Unknown] albuterol sulfate 90 mcg/actuation aerosol inhaler (Ventolin HFA) 1 - 2 puff inhalation Q4H PRN PRN Wheezing #1 ea 08/16/23 [Rx Last Taken Unknown] prednisone 20 mg tablet 40 mg (2 x 20 mg) PO DAILY 7 days #14 tabs 08/16/23 [Rx Last Taken Unknown] Allergy/AdvReac Type Severity Reaction Status Date / Time No Known Allergies Allergy Verified 08/18/23 09:21 Family History Mother Diabetes Kidney disease Father Heart disease Lung disease Surgical History achilles tendon surgery History of total right knee replacement S/P foot surgery Social History Smoking Status: Never smoker alcohol intake: never substance use type: does not use what type of physical activity do you participate in: none ROS ROS ED ROS Narrative REVIEW OF SYSTEMS: Unless otherwise stated in this report the patient's positive and negative responses for review of systems for constitutional, eyes, ENT, cardiovascular, respiratory, gastrointestinal, neurological, , musculoskeletal, and integument systems and related systems to the presenting problem are either stated in the history of present illness or were not pertinent or were negative for the symptoms and/or complaints related to the presenting medical problem. EXAM Physical Exam Narrative Exam Narrative: Vital signs reviewed and patient is not hypoxic. 95% on room air, patient was placed on 2 L per patient comfort. General: The patient appears well and in no apparent distress. Patient is resting comfortably on cart. Not toxic, lethargic, or listless. Patient does have audible wheezing. Skin: Warm, dry, no pallor noted. There is no rash noted. Head: Normocephalic, atraumatic Eye: Normal conjunctiva, no drainage, EOMI. PERRL. Ears, Nose, Mouth, and Throat: oral mucosa is moist. Nares patent. Mouth without vesicles. Cardiovascular: Regular Rate and Rhythm, no murmurs, gallops, or rubs Respiratory: Patient is in mild respiratory distress, short shallow inspirations bilateral, breath sounds equal bilateral, decreased breath sounds bilateral, diffuse wheezing bilateral., no accessory muscle use, lungs are show no rales or rhonchi Back: non-tender, no CVA tenderness bilaterally to percussion. NO CTLS midline or paraspinal tenderness to palpation. GI: Soft, obese, no tenderness to palpation, no masses appreciated. No rebound, guarding, or rigidity noted. Musculoskeletal: The patient has full range of motion of all extremities and joints with no difficulty. Patient has no motor, no sensory deficits. Nonpitting peripheral edema to lower extremities, equal, chronic. Neurological: A&O x4, normal speech, no focal neurological deficits. Psychiatric: Cooperative Const Vital Signs: 08/18/23 09:19 08/18/23 09:47 08/18/23 10:01 Temperature 97.9 F Temperature Source Temporal Pulse Rate 68 69 Respiratory Rate 16 22 H Respiratory Effort Normal Non-Labored Respiratory Depth Normal Respiratory Pattern Normal Blood Pressure 181/98 H Blood Pressure Mean 125 Pulse Ox 98 96 Oxygen Delivery Method Room Air Room Air Room Air 08/18/23 10:27 08/18/23 10:37 08/18/23 11:06 Temperature Temperature Source Pulse Rate 110 H 65 Respiratory Rate 20 H 21 H Respiratory Effort Respiratory Depth Respiratory Pattern Tachypnea Blood Pressure 162/77 H Blood Pressure Mean 105 Pulse Ox 97 94 Oxygen Delivery Method Room Air Room Air 08/18/23 11:59 08/18/23 12:09 Temperature Temperature Source Pulse Rate 61 62 Respiratory Rate 20 H 16 Respiratory Effort Respiratory Depth Respiratory Pattern Blood Pressure 155/70 H 149/59 H Blood Pressure Mean 98 89 Pulse Ox 94 97 Oxygen Delivery Method Room Air Room Air MDM MDM MDM Narrative Medical decision making narrative: Patient feels significantly better at discharge compared to when she arrived. Patient had 2 DuoNeb's, and a dose of magnesium given over 15 minutes. Patient CTA of the chest shows no acute findings. No signs of pneumonia, no PE. Patient's lab work shows no significant findings, troponin was negative. Patient does have albuterol inhaler at home that she can continue using 2 puffs every 4 hours. Patient was recommended using DayQuil, NyQuil and Flonase. Patient will continue taking her prednisone regimen. No indication for antibiotics at this time, patient was recommended to hold off on taking doxycycline unless her symptoms continue after 7 to 10 days. Patient understands recommendations, feels so much better, very thankful. Patient was given a work note for her ER visit on Monday, yesterday and today Lab Data Attestation: I reviewed the patient's lab results. Labs: Laboratory Results - last 24 hr 08/18/23 10:42 WBC 11.1 H RBC 5.22 Hgb 14.9 Hct 47.4 H MCV 90.8 MCH 28.5 MCHC 31.4 L RDW Std Deviation 42.3 RDW Coeff of Jez 12.7 Plt Count 274 MPV 10.9 Immature Gran % (Auto) 0.500 Neut % (Auto) 80.5 H Lymph % (Auto) 10.9 L [place] % (Auto) 3.3 Eos % (Auto) 4.3 Baso % (Auto) 0.5 Absolute Neuts (auto) 8.9 H Absolute Lymphs (auto) 1.20 Nucleated RBC % 0 Sodium 141 Potassium 3.7 Chloride 107 Carbon Dioxide 32.0 Anion Gap 2 L BUN 10 Creatinine 0.96 Estim Creat Clear Calc 62.87 Est GFR (MDRD) Af Amer 77 Est GFR (MDRD) Non-Af 63 BUN/Creatinine Ratio 10.4 Glucose 109 H Calcium 9.5 Troponin I High Sens 7 B-Natriuretic Peptide 83.7 ABG Data ABG results: ABG 08/18/23 10:56 Specimen Type ART Sample Site R Radial pH 7.44 Bicarbonate Actual 26.0 Total CO2 27 Base Excess 2 O2 Saturation 95 O2 % 21.0 ABG pCO2 38.6 ABG pO2 71 L [place] Test Positive O2 Delivery Device Room Air Vent Mode Not entered Radiography Diagnostic Testing: Clinical Impression(s) from Imaging Studies Chest CTA 08/18/23 10:22 IMPRESSION: No evidence of pulmonary embolism. Electronically Signed: Caroline Real MD at 11:57 EDT , EKG Initial EKG: Attestation: I personally reviewed and interpreted this EKG as follows: (EKG interpretation. Normal sinus rhythm at 61 beats a minute. Normal axis deviation. Artifact. No acute ST elevation, no acute ectopy. QTc of 438.) Discharge Plan Triage Chief Complaint: Shortness of Breath ED Provider: Alberto Chan Dx/Rx/DC Orders Clinical Impression: Shortness of breath, Bronchitis Instructions: ED Bronchitis with Wheezing (Adult), ED Bronchitis, No Antibiotic (Adult) Prescriptions: No Action aspirin 81 mg tablet,delayed release (DR/EC) 81 mg PO QDAY pantoprazole 40 mg tablet,delayed release (DR/EC) 40 mg PO DAILY prednisone 20 mg tablet See Rx Instructions .ROUTE .COMPLEX Patient Comments: TAKE 1 TAB TWICE DAILY FOR 3 DAYS THEN 1 TABLET DAILY FOR 4 DAYS Rx Instructions: taper albuterol sulfate [Ventolin HFA] 90 mcg/actuation HFA aerosol inhaler 1 - 2 puff inhalation Q4H PRN PRN (Reason: Wheezing) Qty: 1 0RF prednisone 20 mg tablet 40 mg PO DAILY 7 Days Qty: 14 0RF metoprolol succinate [Toprol XL] 50 mg tablet extended release 24 hr 50 mg PO DAILY Qty: 90 3RF flecainide 100 mg tablet 100 mg PO Q12H Qty: 180 4RF Primary Care Provider: Prema Hanna Referrals: Prema Hanna MD [Primary Care Provider] - Activity Restrictions/Additional Instructions: Use DayQuil, NyQuil, Flonase. Continue using albuterol inhaler every 4 hours while awake. Continue using cold and cough congestion medication as well. CTA of your chest shows no signs of blood clot, no signs of pneumonia. Continue taking prednisone as well as ordered. Follow-up with your PCP next week if no improvement. Your PCP ordered doxycycline, but not we have the benefit of having a CTA of the chest that shows no pneumonia, PE, or any other COVID infection. You are not a smoker. Recommendation is to hold off on taking doxycycline unless her symptoms continue after 7 to 10 days. Continue symptomatic treatment [id number]. Disposition Disposition: Home, Self Care
[2023-08-18] MEDS: Ipratropium/Albuterol Sulfate 3 ML AMPUL.NEB 6 ML INHALATION (10:31)
[2023-08-18 10:49] LABS: Absolute Neutrophil Count 8.9 X10^3/uL (2.0-7.7); Basophil# 0.05 X10^3/uL; Basophil% 0.5 % (0-1); Eosinophil# 0.48 X10^3/uL; Eosinophils% 4.3 % (0-5); Hematocrit 47.4 % (37-47); Hemoglobin 14.9 g/dL (12.0-15.0); Lymphocyte % 10.9 % (19-41); Mean Corp Hgb Conc 31.4 g/dL (32-36); Mean Corpuscular Hgb 28.5 pg (27.0-32.0); Mean Corpuscular Volume 90.8 fL (81-99); Mean Platelet Vol. 10.9 fl (6.2-12.0); Monocyte# 0.36 X10^3/uL; Monocyte% 3.3 % (0-10); NRBC Flagged by Analyzer 0 % (0-5); Neutrophil # 8.91 X10^3/uL (2.7-7.7); Neutrophil % 80.5 % (47-70); Platelet Count 274 K/mm3 (150-450); RBC Distribution Width CV 12.7 % (11.6-14.6); RBC Distribution Width SD 42.3 fl (35.1-43.9); Red Blood Count 5.22 M/mm3 (4.2-5.4); White Blood Count 11.1 K/mm3 (4.4-11.0)
[2023-08-18] MEDS: 0.9% Normal Saline (1000mL) 1,000 ML 150 ML IV (10:54)
[2023-08-18 10:59] LABS: Allen Test Positive; Base Excess 2 mmol/L (-2 to +2); Blood Gas Specimen Type ART; Mode Not entered; O2 Delivery Device Room Air; PO2 71 mmHG (75-100); SITE R Radial; SO2 95 % (95-99); Total Carbon Dioxide 27 mmol/L; pCO2 38.6 mmHg (35-45); pH 7.44 (7.35-7.45)
[2023-08-18 11:08] LABS: Anion Gap 2 (5-15); BUN 10 mg/dL (7-18); BUN/Creat Ratio 10.4 RATIO (10-20); Calcium,Total 9.5 mg/dL (8.5-10.1); Chloride 107 mmol/L (98-107); Creatinine, Serum 0.96 mg/dL (0.55-1.02); EST Glomerular Filtration Rate 63 mL/min (>60); Est Glom Filt Rate - Afr Amer 77 mL/min (>60); Estimated Creatinine Clearance 62.87 ml/min; Glucose 109 mg/dL (74-106); Potassium 3.7 mmol/L (3.5-5.1); Sodium Level 141 mmol/L (136-145); Troponin-I HS 7 pg/mL (3.0-54.0)
[2023-08-18 11:13] LABS: BNP,B-Type NATRIURETIC PEPTIDE 83.7 pg/mL (0-100)
--- NOTE | 2023-08-18 11:17 | ED.RN ---
THIS RN CALLED PHARMACY TO CONFIRM MAGNESIUM SULFATE ORDER. PER MANINDER, PHARMACY, OKAY TO GIVE. THIS RN CONFIRMED ORDER WITH DR. BORGES. PER DR. BORGES MEDICATION STILL NEEDED, OKAY TO GIVE. ORDER CONFIRMED WITH JASWINDER, .
--- NOTE | 2023-08-18 11:26 | ED.RN ---
THIS RN ATTEMPTED TO START IV MAGNESIUM. PER CT TRANSPORT, UNABLE TO HAVE IV RUNNING DURING SCAN.
[2023-08-18] MEDS: Magnesium Sulfate 2 GM in Dextrose 5%-Water (100mL Bag) 100 ML 4 GM IV (11:41)
== END 2023-08-18 13:11 | disposition home or self-care (01) ==
PROVIDERS: Emergency Provider Emergency Medicine; PCP Internal Medicine; Visit Provider Emergency Medicine
DX: R06.02 Shortness of breath (principal); J40 Bronchitis, not specified as acute or chronic; G47.33 Obstructive sleep apnea (adult) (pediatric)
CPT/HCPCS: 36600; 71275; 80048; 82803; 83880; 84484; 85025; 87811; 93005; 94640; 96365; 99284; J7030; Q9967

== ENCOUNTER → 2023-10-09 | Outpatient (CLI) | payer OTHER, SELFPAY ==
[2023-10-09 08:03] LABS: EXAGEN MAILED SPECIMEN
[2023-10-09 10:54] LABS: Color, Urine Yellow (Yellow); Glucose, Dipstick Normal (Normal); Ketone-Dipstick Negative (Negative); Leukocyte Esterase-Dipstick Negative /ul (Negative); Nitrite-Dipstick Negative (Negative); Occult Blood-Urine Negative /ul (Negative); Protein-Dipstick Negative (Negative); Specific Gravity, Urine 1.015 (1.002-1.030); Urine Bilirubin Dipstick Negative (Negative); Urine Clarity Clear (Clear); Urine Urobilinogen Normal (Normal)
[2023-10-09 10:59] LABS: Protein, Urine (Random) 6.9 mg/dL (<11.9); Protein:Creat Ratio 70 mg/g CRE (0-200)
[2023-10-09 11:02] LABS: Absolute Lymphocyte Count 1.99 X10^3/uL (0.83-4.51); Absolute Neutrophil Count 3.3 X10^3/uL (2.0-7.7); Basophil# 0.04 X10^3/uL; Basophil% 0.7 % (0-1); Eosinophils% 3.3 % (0-5); Hematocrit 43.2 % (37-47); Hemoglobin 13.5 g/dL (12.0-15.0); Lymphocyte # 1.99 X10^3/ul (0.83-4.51); Lymphocyte % 32.6 % (19-41); Mean Corp Hgb Conc 31.3 g/dL (32-36); Mean Corpuscular Hgb 28.4 pg (27.0-32.0); Mean Corpuscular Volume 90.8 fL (81-99); Mean Platelet Vol. 11.5 fl (6.2-12.0); Monocyte# 0.51 X10^3/uL; Monocyte% 8.4 % (0-10); NRBC Flagged by Analyzer 0 % (0-5); Neutrophil # 3.34 X10^3/uL (2.7-7.7); Neutrophil % 54.7 % (47-70); Platelet Count 253 K/mm3 (150-450); RBC Distribution Width CV 13.2 % (11.6-14.6); Red Blood Count 4.76 M/mm3 (4.2-5.4); White Blood Count 6.1 K/mm3 (4.4-11.0)
[2023-10-09 12:16] LABS: AST(SGOT) 19 U/L (15-37); Alanine Aminotransfer ALT/SGPT 22 U/L (13-56); Albumin, Serum 3.4 g/dL (3.2-5.0); Alkaline Phosphatase 88 U/L (45-117); Anion Gap 8 (5-15); BUN 8 mg/dL (7-18); BUN/Creat Ratio 8.5 RATIO (10-20); Calcium,Total 8.4 mg/dL (8.5-10.1); Chloride 108 mmol/L (98-107); Creatinine, Serum 0.94 mg/dL (0.55-1.02); EST Glomerular Filtration Rate 65 mL/min (>60); Est Glom Filt Rate - Afr Amer 79 mL/min (>60); Globulin 3.4 g/dL (2.2-4.2); Glucose 110 mg/dL (74-106); Hepatitis B Surface Antibody Reactive; Hepatitis B Surface Antigen Non-Reactive (Nonreactive); Hepatitis C Antibody Non-Reactive (Nonreactive); Potassium 3.9 mmol/L (3.5-5.1); Protein, Total 6.8 g/dL (6.4-8.2); Sodium Level 141 mmol/L (136-145)
== END | disposition home or self-care (01) ==
LOC: MTLAB 07:02
PROVIDERS: PCP Internal Medicine; Referring Provider Internal Medicine Rheumatology; Visit Provider Internal Medicine Rheumatology
DX: M06.4 Inflammatory polyarthropathy (principal); M17.0 Bilateral primary osteoarthritis of knee; R76.8 Other specified abnormal immunological findings in serum
CPT/HCPCS: 36415; 80053; 81002; 82570; 84156; 85025; 86706; 86803; 87340